=== PATIENT | female | born 1965 | race Two or more races ===

== ENCOUNTER → 2017-11-20 | Outpatient (CLI) | payer BC ==
[2017-11-20 11:48] LABS: Basophils # (auto) 0 uL; Basophils % (auto) 0.8 % (0.0-2.0); Eosinophils # (auto) 0 uL; Eosinophils % (auto) 0.7 % (0.0-7.0); Hematocrit 40.9 % (36.0-46.0); Hemoglobin 13.7 g/dL (12.2-16.2); Lymphocytes # (auto) 2.5 uL; Mean Corpuscular Hemoglobin 30.5 pg (28.0-32.0); Mean Corpuscular Hgb Conc. 33.5 g/dL (32.0-36.0); Mean Corpuscular Volume 90.9 fL (80.0-100.0); Monocytes # (auto) 0.5 uL; Monocytes % (auto) 9.6 % (0.0-12.0); Neutrophils # (auto) 2.5 uL; Neutrophils % (auto) 44.9 % (37.0-80.0); Platelet Count (auto) 299 10^3/uL (140-450); Red Cell Distribution Width 13.8 % (11.8-14.3); White Blood Cell 5.7 10^3/uL (4.4-10.8)
[2017-11-20 11:57] LABS: Urine Bacteria NONE SEEN /hpf (None Seen); Urine Blood Negative /uL (Negative); Urine Mucus FEW (None Seen); Urine Specific Gravity 1.012 (1.001-1.035); Urine WBC <1 /hpf (0 - 5)
[2017-11-20 13:27] LABS: Albumin 4.3 g/dL (3.4-5.0); BUN/Creatinine Ratio 13.8; Bilirubin, Total 0.2 mg/dL (0.2-1.0); Calcium 9.3 mg/dL (8.5-10.1); Potassium 4.2 mmol/L (3.5-5.1); Total Protein 7.6 g/dL (6.4-8.2)
== END | disposition home or self-care (01) ==
LOC: LAB 11:19
PROVIDERS: ATTEND Internal Medicine
DX: N95.1 Menopausal and female climacteric states (principal); M47.22 Other spondylosis with radiculopathy, cervical region; R79.89 Other specified abnormal findings of blood chemistry
CPT/HCPCS: 36415; 80053; 80061; 81001; 84439; 84443; 85025; 85652

== ENCOUNTER → 2017-12-04 | Outpatient (CLI) | payer BC | END | disposition home or self-care (01) | LOC: LAB 14:53 | PROVIDERS: ATTEND Internal Medicine | DX: N95.1 Menopausal and female climacteric states (principal); M47.22 Other spondylosis with radiculopathy, cervical region | CPT/HCPCS: 82270 ==

== ENCOUNTER → 2019-06-01 | Outpatient (CLI) | payer BC ==
[2019-06-01 09:41] LABS: Basophils # (auto) 0 uL; Basophils % (auto) 0.9 % (0.0-2.0); Eosinophils # (auto) 0.1 uL; Eosinophils % (auto) 1.9 % (0.0-7.0); Hematocrit 41.2 % (36.0-46.0); Hemoglobin 13.7 g/dL (12.2-16.2); Lymphocytes # (auto) 2.1 uL; Lymphocytes % (auto) 39.2 % (10.0-50.0); Mean Corpuscular Hemoglobin 30.8 pg (28.0-32.0); Mean Corpuscular Hgb Conc. 33.1 g/dL (32.0-36.0); Mean Corpuscular Volume 92.9 fL (80.0-100.0); Monocytes # (auto) 0.5 uL; Monocytes % (auto) 9.9 % (0.0-12.0); Neutrophils # (auto) 2.5 uL; Neutrophils % (auto) 48.1 % (37.0-80.0); Nucleated Red Blood Cells % 0.1 %; Platelet Count (auto) 270 10^3/uL (140-450); Red Blood Cells 4.44 10^6/uL (4.0-5.20); Red Cell Distribution Width 13.4 % (11.8-14.3); White Blood Cell 5.2 10^3/uL (4.4-10.8)
[2019-06-01 09:48] LABS: Urine Bacteria NONE SEEN /hpf (None Seen); Urine Blood Negative /uL (Negative); Urine Mucus FEW (None Seen); Urine Specific Gravity 1.011 (1.001-1.035); Urine WBC <1 /hpf (0 - 5)
[2019-06-01 10:41] LABS: Albumin 3.8 g/dL (3.4-5.0); Potassium 4.6 mmol/L (3.5-5.1)
[2019-06-01 10:51] LABS: BUN/Creatinine Ratio 17.7; Bilirubin, Total 0.3 mg/dL (0.2-1.0); Total Protein 7.2 g/dL (6.4-8.2)
== END | disposition home or self-care (01) ==
LOC: LAB 09:05
PROVIDERS: ATTEND Internal Medicine
DX: E78.00 Pure hypercholesterolemia, unspecified (principal); E66.9 Obesity, unspecified; R53.83 Other fatigue; R51 Headache; Z68.32 Body mass index [BMI] 32.0-32.9, adult
CPT/HCPCS: 36415; 80053; 80061; 81001; 82043; 84439; 84443; 85025; 85652

== ENCOUNTER → 2020-03-27 | Outpatient (CLI) | payer BC | END | disposition home or self-care (01) | LOC: LAB 10:20 | PROVIDERS: ATTEND Internal Medicine | DX: Z12.11 Encounter for screening for malignant neoplasm of colon (principal) | CPT/HCPCS: 82270 ==

== ENCOUNTER → 2020-11-23 | Outpatient (CLI) | payer BC ==
[2020-11-23 10:51] LABS: Basophils # (auto) 0.1 10 ^3/uL (0-0.2); Basophils % (auto) 0.9 % (0.0-2.0); Eosinophils # (auto) 0.1 10 ^3/uL (0-0.8); Eosinophils % (auto) 1.8 % (0.0-7.0); Hemoglobin 13.4 g/dL (12.2-16.2); Lymphocytes # (auto) 2.5 10 ^3/uL (0.4-5.4); Lymphocytes % (auto) 40.6 % (10.0-50.0); Mean Corpuscular Hemoglobin 31.2 pg (28.0-32.0); Mean Corpuscular Hgb Conc. 34.5 g/dL (32.0-36.0); Mean Corpuscular Volume 90.4 fL (80.0-100.0); Monocytes # (auto) 0.6 10 ^3/uL (0-1.3); Monocytes % (auto) 10.4 % (0.0-12.0); Neutrophils # (auto) 2.9 10 ^3/uL (1.6-8.6); Neutrophils % (auto) 46.3 % (37.0-80.0); Nucleated Red Blood Cells % 0.1 %; Platelet Count (auto) 305 10^3/uL (140-450); Red Blood Cells 4.31 10^6/uL (4.0-5.20); Red Cell Distribution Width 13.9 % (11.8-14.3); White Blood Cell 6.2 10^3/uL (4.4-10.8)
[2020-11-23 10:54] LABS: Urine Bacteria NONE SEEN /hpf (None Seen); Urine Blood Negative /uL (Negative); Urine Specific Gravity 1.021 (1.001-1.035); Urine WBC 1 /hpf (0 - 5)
[2020-11-23 11:22] LABS: Calcium 9.2 mg/dL (8.5-10.1); Potassium 4.1 mmol/L (3.5-5.1)
[2020-11-23 11:26] LABS: BUN/Creatinine Ratio 21.8; Bilirubin, Total 0.4 mg/dL (0.2-1.0); Total Protein 7.5 g/dL (6.4-8.2)
== END | disposition home or self-care (01) ==
LOC: LAB 10:27
PROVIDERS: ATTEND Internal Medicine
DX: Z00.00 Encounter for general adult medical examination without abnormal findings (principal); N95.1 Menopausal and female climacteric states; R51.9 Headache, unspecified
CPT/HCPCS: 36415; 80053; 80061; 81001; 84439; 84443; 85025; 85652

== ENCOUNTER 2020-12-25 11:31 | Emergency (ER) | payer BC ==
[~2020-12-25] VITALS: Ht 152.4 cm; Wt 72.6 kg
[2020-12-25] MEDS ORDERED: SODIUM CHLORIDE 0.9% 1,000 ML IVB ONE (12:15)
[2020-12-25] MEDS ORDERED: KETOROLAC TROMETH 30 MG/ML 1ML VIAL IV ONE (12:15)
[2020-12-25] MEDS ORDERED: ONDANSETRON HCL 4 MG/2 ML VIAL IV ONE (12:15)
[2020-12-25 12:51] LABS: Urine Bacteria NONE SEEN /hpf (None Seen); Urine Blood TRACE /uL (Negative); Urine Mucus FEW (None Seen); Urine Specific Gravity 1.022 (1.001-1.035); Urine WBC 1 /hpf (0 - 5)
[2020-12-25 13:30] LABS: Basophils # (auto) 0.1 10 ^3/uL (0-0.2); Basophils % (auto) 0.6 % (0.0-2.0); Eosinophils # (auto) 0 10 ^3/uL (0-0.8); Eosinophils % (auto) 0.1 % (0.0-7.0); Hematocrit 38.4 % (36.0-46.0); Hemoglobin 13.3 g/dL (12.2-16.2); Lymphocytes # (auto) 2.7 10 ^3/uL (0.4-5.4); Lymphocytes % (auto) 29.1 % (10.0-50.0); Mean Corpuscular Hemoglobin 31.2 pg (28.0-32.0); Mean Corpuscular Hgb Conc. 34.7 g/dL (32.0-36.0); Mean Corpuscular Volume 89.9 fL (80.0-100.0); Monocytes # (auto) 0.9 10 ^3/uL (0-1.3); Monocytes % (auto) 9.2 % (0.0-12.0); Neutrophils # (auto) 5.7 10 ^3/uL (1.6-8.6); Nucleated Red Blood Cells % 0.1 %; Platelet Count (auto) 331 10^3/uL (140-450); Red Blood Cells 4.27 10^6/uL (4.0-5.20); Red Cell Distribution Width 13.7 % (11.8-14.3); White Blood Cell 9.3 10^3/uL (4.4-10.8)
[2020-12-25 14:12] LABS: Albumin 4.3 g/dL (3.4-5.0); Calcium 9.4 mg/dL (8.5-10.1); Potassium 4.3 mmol/L (3.5-5.1)
[2020-12-25 14:16] LABS: BUN/Creatinine Ratio 15.7; Bilirubin, Total 0.4 mg/dL (0.2-1.0); Total Protein 7.5 g/dL (6.4-8.2)
[2020-12-25 15:00] VITALS: BP 148/88
== END 2020-12-25 16:09 | disposition home or self-care (01) ==
LOC: ER 11:31
DX: R10.9 Unspecified abdominal pain (principal); N20.9 Urinary calculus, unspecified; Z90.710 Acquired absence of both cervix and uterus
CPT/HCPCS: 36415; 74176; 80053; 81001; 83690; 85025; 85049; 96361; 96374; 96375; 99284; J1885; J2405; J7030

== ENCOUNTER 2020-12-26 18:03 | Inpatient (IN) | payer BC ==
[~2020-12-26] VITALS: Ht 30.5 cm; Wt 64.2 kg
[2020-12-26] MEDS ORDERED: SODIUM CHLORIDE 0.9% 1,000 ML IV SCH (18:30)
[2020-12-26] MEDS ORDERED: KETOROLAC TROMETH 30 MG/ML 1ML VIAL IV PRN (18:30)
[2020-12-26] MEDS ORDERED: NITROGLYCERIN 0.4 MG SL TAB SL PRN (18:30)
[2020-12-26] MEDS ORDERED: MORPHINE SULF INJ 2 MG/ML SYRINGE 1ML IV PRN ×2 (18:30)
[2020-12-26] MEDS ORDERED: ACETAMINOPHEN 500 MG TAB PO PRN (18:30)
[2020-12-26] MEDS ORDERED: ONDANSETRON HCL 4 MG/2 ML VIAL IV PRN (18:30)
[2020-12-26 18:38] VITALS: BP 143/92
[2020-12-26] MEDS ORDERED: MANNITOL FTV 25% 12.5 GM/50 ML 50 ML IV ONE (19:45)
[2020-12-26 22:00] VITALS: BP 145/78
[2020-12-27] MEDS ORDERED: IBUP600T27 PO (00:37)
[2020-12-27] MEDS ORDERED: ASPITAB34 OR (00:37)
[2020-12-27 05:00] VITALS: BP 121/79
[2020-12-27] MEDS ORDERED: SODIUM CHLORIDE 0.9% 1,000 ML IV SCH (07:00)
[2020-12-27 09:00] VITALS: BP 134/86
[2020-12-27] MEDS ORDERED: cefTRIAXone 1GM/50ML D5W 50 ML IV SCH (09:00)
[2020-12-27] MEDS ORDERED: PANTOPRAZOLE 40 MG TAB PO SCH (10:00)
[2020-12-27 13:00] VITALS: BP 145/87
[2020-12-27] MEDS ORDERED: MELO1TAB56 PO (16:24)
[2020-12-27] MEDS ORDERED: TAM04C PO (16:25)
[2020-12-27 17:00] VITALS: BP 144/80
[2020-12-27 17:20] VITALS: BP 134/86
[2020-12-27] MEDS ORDERED: TAMSULOSIN HYDROCHLORIDE 0.4 MG CAP PO SCH (18:00)
== END 2020-12-27 19:25 | disposition home or self-care (01) | DRG 694 ==
LOC: WEST WING 18:03
PROVIDERS: ADMIT Nurse Practitioner Acute Care; ATTEND Internal Medicine
DX: N13.2 Hydronephrosis with renal and ureteral calculous obstruction (principal); Z20.822 Contact with and (suspected) exposure to COVID-19; E66.01 Morbid (severe) obesity due to excess calories
CPT/HCPCS: G0378; J0696; J1885

== ENCOUNTER 2021-02-04 09:04 | Inpatient (IN) | payer BC ==
[~2021-02-04] VITALS: Ht 152.4 cm; Wt 74.3 kg
[~2021-02-04 09:04] MED LIST: ASPITAB34 OR; MELO1TAB56 PO; TAM04C PO
[2021-02-04] MEDS ORDERED: KETOROLAC TROMETH 30 MG/ML 1ML VIAL IV ONE (09:45)
[2021-02-04] MEDS ORDERED: SODIUM CHLORIDE 0.9% 1,000 ML IV ONE ×2 (09:45)
[2021-02-04 09:46] LABS: Basophils # (auto) 0 10 ^3/uL (0-0.2); Basophils % (auto) 0.4 % (0.0-2.0); Eosinophils # (auto) 0 10 ^3/uL (0-0.8); Hematocrit 41.3 % (36.0-46.0); Lymphocytes # (auto) 1.4 10 ^3/uL (0.4-5.4); Lymphocytes % (auto) 11.9 % (10.0-50.0); Mean Corpuscular Hemoglobin 30.4 pg (28.0-32.0); Mean Corpuscular Volume 89.5 fL (80.0-100.0); Monocytes # (auto) 0.8 10 ^3/uL (0-1.3); Monocytes % (auto) 7.2 % (0.0-12.0); Neutrophils # (auto) 9.2 10 ^3/uL (1.6-8.6); Neutrophils % (auto) 80.5 % (37.0-80.0); Red Blood Cells 4.61 10^6/uL (4.0-5.20); Red Cell Distribution Width 12.9 % (11.8-14.3); White Blood Cell 11.5 10^3/uL (4.4-10.8)
[2021-02-04 10:10] LABS: Albumin 3.7 g/dL (3.4-5.0); Calcium 9.1 mg/dL (8.5-10.1); Potassium 3.6 mmol/L (3.5-5.1)
[2021-02-04 10:13] LABS: BUN/Creatinine Ratio 14.1; Bilirubin, Total 0.5 mg/dL (0.2-1.0); Total Protein 7.6 g/dL (6.4-8.2)
[2021-02-04 10:14] LABS: Urine Bacteria NONE SEEN /hpf (None Seen); Urine Blood 3+ /uL (Negative); Urine Specific Gravity 1.014 (1.001-1.035); Urine WBC 3 /hpf (0 - 5)
[2021-02-04] MEDS ORDERED: TAMSULOSIN HYDROCHLORIDE 0.4 MG CAP PO ONE (13:00)
[2021-02-04] MEDS ORDERED: cefTRIAXone 1GM/50ML D5W 50 ML IV ONE (13:15)
[2021-02-04] MEDS ORDERED: HYDROcodone-ACET 5/325MG TAB PO PRN (13:45)
[2021-02-04] MEDS ORDERED: MORPHINE SULFATE INJECTION 2 MG/2 ML SYRG IV PRN ×2 (13:45)
[2021-02-04] MEDS ORDERED: ONDANSETRON HCL 4 MG/2 ML VIAL IV PRN (13:45)
[2021-02-04] MEDS ORDERED: NITROGLYCERIN 0.4 MG SL TAB SL PRN (13:45)
[2021-02-04] MEDS ORDERED: ACETAMINOPHEN 500 MG TAB PO PRN (13:45)
[2021-02-04] MEDS: SODIUM CHLORIDE 0.9% 1,000 ML IV SCH ×2 (13:52→21:45)
[2021-02-04 20:30] VITALS: BP 100/61
[2021-02-04] MEDS ORDERED: MANNITOL FTV 25% 12.5 GM/50 ML 50 ML IV ONE (20:45)
[2021-02-04 22:00] VITALS: BP 100/61
[2021-02-05] MEDS ORDERED: MULT-1058 PO (00:41)
[2021-02-05 05:00] VITALS: BP 115/68
[2021-02-05] MEDS: SODIUM CHLORIDE 0.9% 1,000 ML IV SCH ×3 (05:25→22:36)
[2021-02-05 06:38] LABS: Basophils # (auto) 0.1 10 ^3/uL (0-0.2); Basophils % (auto) 0.7 % (0.0-2.0); Eosinophils # (auto) 0.1 10 ^3/uL (0-0.8); Eosinophils % (auto) 0.9 % (0.0-7.0); Hematocrit 34.9 % (36.0-46.0); Hemoglobin 12.2 g/dL (12.2-16.2); Lymphocytes # (auto) 2.4 10 ^3/uL (0.4-5.4); Lymphocytes % (auto) 31.7 % (10.0-50.0); Mean Corpuscular Hemoglobin 31.3 pg (28.0-32.0); Mean Corpuscular Volume 89.4 fL (80.0-100.0); Monocytes # (auto) 0.9 10 ^3/uL (0-1.3); Monocytes % (auto) 11.7 % (0.0-12.0); Neutrophils # (auto) 4.2 10 ^3/uL (1.6-8.6); White Blood Cell 7.6 10^3/uL (4.4-10.8)
[2021-02-05 06:53] LABS: INR 1.02 (0.9-1.15); Partial Thromboplastin Time 26.4 sec (23.6-33.0)
[2021-02-05 06:59] LABS: Calcium 8.2 mg/dL (8.5-10.1); Potassium 4.5 mmol/L (3.5-5.1)
[2021-02-05 07:03] LABS: BUN/Creatinine Ratio 13.7
[2021-02-05 08:49] VITALS: BP 127/76
[2021-02-05] MEDS ORDERED: LIDOCAINE 2%HCL (LOCAL ANESTH.) INJ 20ML MDV ONE (10:19)
[2021-02-05] MEDS ORDERED: MIDAZOLAM HCL 2MG/2ML 2ml VIAL (1mg/ml) ONE (10:23)
[2021-02-05] MEDS ORDERED: ONDANSETRON HCL 4 MG/2 ML VIAL ONE (10:23)
[2021-02-05] MEDS ORDERED: fentaNYL CITRATE 100 MCG/2 ML VL ONE (10:23)
[2021-02-05] MEDS ORDERED: diphenhdrAMINE HCL 50 MG/1 ML VL ONE (10:23)
[2021-02-05] MEDS ORDERED: IODIXANOL 320MG/ML 100ML BTL IV ONE (10:51)
[2021-02-05] MEDS: cefTRIAXone 1GM/50ML D5W 50 ML IV SCH (15:12)
[2021-02-05] MEDS: KETOROLAC TROMETH 30 MG/ML 1ML VIAL IV PRN ×2 (15:13→22:37)
[2021-02-05 17:00] VITALS: BP 130/75
[2021-02-05 22:00] VITALS: BP 133/71
[2021-02-06 05:00] VITALS: BP 136/92
[2021-02-06] MEDS: SODIUM CHLORIDE 0.9% 1,000 ML IV SCH ×2 (05:45→13:12)
[2021-02-06 06:20] LABS: Basophils # (auto) 0.1 10 ^3/uL (0-0.2); Basophils % (auto) 0.8 % (0.0-2.0); Eosinophils # (auto) 0.1 10 ^3/uL (0-0.8); Eosinophils % (auto) 1.1 % (0.0-7.0); Hematocrit 33.6 % (36.0-46.0); Hemoglobin 11.9 g/dL (12.2-16.2); Lymphocytes # (auto) 2.5 10 ^3/uL (0.4-5.4); Lymphocytes % (auto) 31.1 % (10.0-50.0); Mean Corpuscular Hemoglobin 31.9 pg (28.0-32.0); Mean Corpuscular Hgb Conc. 35.3 g/dL (32.0-36.0); Mean Corpuscular Volume 90.4 fL (80.0-100.0); Monocytes % (auto) 12.4 % (0.0-12.0); Neutrophils # (auto) 4.3 10 ^3/uL (1.6-8.6); Neutrophils % (auto) 54.6 % (37.0-80.0); Nucleated Red Blood Cells % 0.1 %; Red Blood Cells 3.72 10^6/uL (4.0-5.20); Red Cell Distribution Width 13.1 % (11.8-14.3); White Blood Cell 7.9 10^3/uL (4.4-10.8)
[2021-02-06 06:35] LABS: BUN/Creatinine Ratio 16.1; Calcium 8.4 mg/dL (8.5-10.1); Potassium 3.8 mmol/L (3.5-5.1)
[2021-02-06 09:00] VITALS: BP 135/62
[2021-02-06] MEDS: cefTRIAXone 1GM/50ML D5W 50 ML IV SCH (09:30)
[2021-02-06 12:13] VITALS: BP 130/71
[2021-02-06 12:57] VITALS: BP 130/71
== END 2021-02-06 13:05 | disposition home or self-care (01) | DRG 694 ==
LOC: ER 09:04 → EDBD 09:04 → OVERFLOW 13:41 → WEST WING 20:03
PROVIDERS: ADMIT Nurse Practitioner Acute Care; ATTEND Internal Medicine
PROC: 0T9030Z Drainage of Right Kidney with Drainage Device, Percutaneous Approach (ICD-10-PCS; principal; 2021-02-05)
PROC: BT41ZZZ Ultrasonography of Right Kidney (ICD-10-PCS; 2021-02-05)
PROC: BT111ZZ Fluoroscopy of Right Kidney using Low Osmolar Contrast (ICD-10-PCS; 2021-02-05)
DX: N13.2 Hydronephrosis with renal and ureteral calculous obstruction (principal); Z20.822 Contact with and (suspected) exposure to COVID-19; Z80.1 Family history of malignant neoplasm of trachea, bronchus and lung; Z80.7 Family history of other malignant neoplasms of lymphoid, hematopoietic and related tissues; Z90.710 Acquired absence of both cervix and uterus
CPT/HCPCS: 36415; 71045; 74176; 74425; 76942; 80048; 80053; 81001; 85025; 85610; 85730; 86850; 86900; 86901; 87086; 87426; 93005; 96361; 96365; 96375; 99152; C1729; G0378; J0696; J1885; J2250; J2405; Q9967

== ENCOUNTER → 2021-11-25 | Day surgery (SDC) | payer BC ==
[2021-11-21 11:20] LABS: Basophils # (auto) 0.1 10 ^3/uL (0-0.2); Eosinophils # (auto) 0.1 10 ^3/uL (0-0.8); Eosinophils % (auto) 1.1 % (0.0-7.0); Hematocrit 36.6 % (36.0-46.0); Hemoglobin 12.7 g/dL (12.2-16.2); Lymphocytes # (auto) 2.2 10 ^3/uL (0.4-5.4); Lymphocytes % (auto) 32.8 % (10.0-50.0); Mean Corpuscular Hemoglobin 31.8 pg (28.0-32.0); Mean Corpuscular Hgb Conc. 34.7 g/dL (32.0-36.0); Mean Corpuscular Volume 91.9 fL (80.0-100.0); Monocytes # (auto) 0.8 10 ^3/uL (0-1.3); Monocytes % (auto) 11.8 % (0.0-12.0); Neutrophils # (auto) 3.5 10 ^3/uL (1.6-8.6); Neutrophils % (auto) 53.3 % (37.0-80.0); Red Blood Cells 3.98 10^6/uL (4.0-5.20); Red Cell Distribution Width 14.3 % (11.8-14.3); White Blood Cell 6.6 10^3/uL (4.4-10.8)
[2021-11-21 11:39] LABS: INR 0.99 (0.9-1.15); Partial Thromboplastin Time 25.7 sec (23.6-33.0)
[2021-11-21 11:47] LABS: Urine Bacteria NONE SEEN /hpf (None Seen); Urine Blood Negative /uL (Negative); Urine Specific Gravity 1.019 (1.001-1.035); Urine WBC 1 /hpf (0 - 5)
[2021-11-21 12:04] LABS: Albumin 3.8 g/dL (3.4-5.0); Calcium 9.4 mg/dL (8.5-10.1); Potassium 4.4 mmol/L (3.5-5.1)
[2021-11-21 12:10] LABS: BUN/Creatinine Ratio 22.5; Bilirubin, Total 0.2 mg/dL (0.2-1.0); Total Protein 7.1 g/dL (6.4-8.2)
[~2021-11-25] VITALS: Ht 152.4 cm; Wt 74.8 kg
[~2021-11-25] MED LIST changes: +BUPIVACAINE 0.25% INJ 50ML VIAL ONE; +GLYCOPYRROLATE 0.2 MG/ML 1ML VIAL ONE; +HYDROmorphone HCL 2 MG/ML VL/or syr IV PRN; +KETAMINE 50mg/ML 10ml Vial (500mg/10ml) IV ONE; +KETOROLAC TROMETH 60MG/2ML VIAL ONE; +LIDOCAINE 1%HCL (LOCAL ANESTH) 10 ML MDV ONE; -MELO1TAB56 PO; +MIDAZOLAM HCL 2MG/2ML 2ml VIAL (1mg/ml) ONE; +MULT-1058 PO; +ONDANSETRON HCL 4 MG/2 ML VIAL IV ONE; +ONDANSETRON HCL 4 MG/2 ML VIAL IV PRN; +ONDANSETRON HCL 4 MG/2 ML VIAL ONE; +PROPOFOL 10 MG/ML 20 ML IV ONE; -TAM04C PO; +ceFAZolin 1GM/50ML 100 ML IV ONE
[2021-11-25 11:40] VITALS: BP 148/85
== END | disposition home or self-care (01) ==
LOC: SUR 08:45
PROVIDERS: ATTEND Orthopaedic Surgery Adult Reconstructive Orthopaedic Surgery
DX: M65.312 Trigger thumb, left thumb (principal); G43.909 Migraine, unspecified, not intractable, without status migrainosus; E66.01 Morbid (severe) obesity due to excess calories; Z98.890 Other specified postprocedural states; Z79.899 Other long term (current) drug therapy; Z88.6 Allergy status to analgesic agent; Z80.42 Family history of malignant neoplasm of prostate; Z80.1 Family history of malignant neoplasm of trachea, bronchus and lung; Z80.8 Family history of malignant neoplasm of other organs or systems; Z68.32 Body mass index [BMI] 32.0-32.9, adult
CPT/HCPCS: 26055; 36415; 80053; 81001; 85025; 85610; 85730; J0690; J1885; J2001; J2250; J2405; J2704; J3490; U0003

== ENCOUNTER → 2022-01-01 | Outpatient (CLI) | payer BC ==
[~2022-01-01] MED LIST changes: -BUPIVACAINE 0.25% INJ 50ML VIAL ONE; -GLYCOPYRROLATE 0.2 MG/ML 1ML VIAL ONE; -HYDROmorphone HCL 2 MG/ML VL/or syr IV PRN; -KETAMINE 50mg/ML 10ml Vial (500mg/10ml) IV ONE; -KETOROLAC TROMETH 60MG/2ML VIAL ONE; -LIDOCAINE 1%HCL (LOCAL ANESTH) 10 ML MDV ONE; -MIDAZOLAM HCL 2MG/2ML 2ml VIAL (1mg/ml) ONE; -ONDANSETRON HCL 4 MG/2 ML VIAL IV ONE; -ONDANSETRON HCL 4 MG/2 ML VIAL IV PRN; -ONDANSETRON HCL 4 MG/2 ML VIAL ONE; -PROPOFOL 10 MG/ML 20 ML IV ONE; -ceFAZolin 1GM/50ML 100 ML IV ONE
[2022-01-01 12:31] LABS: Basophils # (auto) 0.1 10 ^3/uL (0-0.2); Basophils % (auto) 0.9 % (0.0-2.0); Eosinophils # (auto) 0.1 10 ^3/uL (0-0.8); Eosinophils % (auto) 1.2 % (0.0-7.0); Hematocrit 38.1 % (36.0-46.0); Hemoglobin 12.8 g/dL (12.2-16.2); Lymphocytes # (auto) 2.4 10 ^3/uL (0.4-5.4); Lymphocytes % (auto) 34.8 % (10.0-50.0); Mean Corpuscular Hemoglobin 30.7 pg (28.0-32.0); Mean Corpuscular Hgb Conc. 33.6 g/dL (32.0-36.0); Mean Corpuscular Volume 91.3 fL (80.0-100.0); Monocytes # (auto) 0.7 10 ^3/uL (0-1.3); Monocytes % (auto) 10.4 % (0.0-12.0); Neutrophils # (auto) 3.6 10 ^3/uL (1.6-8.6); Neutrophils % (auto) 52.7 % (37.0-80.0); Nucleated Red Blood Cells % 0.1 %; Red Blood Cells 4.17 10^6/uL (4.0-5.20); Red Cell Distribution Width 13.3 % (11.8-14.3); White Blood Cell 6.9 10^3/uL (4.4-10.8)
[2022-01-01 12:43] LABS: Urine Bacteria FEW /hpf (None Seen); Urine Blood Negative /uL (Negative); Urine Mucus FEW (None Seen); Urine WBC 1 /hpf (0 - 5)
[2022-01-01 12:52] LABS: Calcium 9.3 mg/dL (8.5-10.1); Potassium 3.9 mmol/L (3.5-5.1)
[2022-01-01 12:57] LABS: BUN/Creatinine Ratio 15.6; Bilirubin, Total 0.4 mg/dL (0.2-1.0); Total Protein 7.3 g/dL (6.4-8.2)
== END | disposition home or self-care (01) ==
LOC: LAB 11:42
PROVIDERS: ATTEND Internal Medicine
DX: Z00.00 Encounter for general adult medical examination without abnormal findings (principal); M25.312 Other instability, left shoulder
CPT/HCPCS: 36415; 80053; 80061; 81001; 84439; 84443; 85025; 85652

== ENCOUNTER → 2023-11-24 | Outpatient (CLI) | payer BC ==
[2023-11-24 10:36] LABS: Urine Bacteria None Seen /hpf (None Seen); Urine WBC None Seen /hpf (0 - 5)
[2023-11-24 10:43] LABS: Basophils # (auto) 0.1 10 ^3/uL (0-0.2); Eosinophils # (auto) 0.1 10 ^3/uL (0-0.8); Eosinophils % (auto) 1.7 % (0.0-7.0); Hematocrit 39.4 % (36.0-46.0); Hemoglobin 13.3 g/dL (12.2-16.2); Lymphocytes # (auto) 2.3 10 ^3/uL (0.4-5.4); Lymphocytes % (auto) 34.2 % (10.0-50.0); Mean Corpuscular Hemoglobin 31.1 pg (28.0-32.0); Mean Corpuscular Hgb Conc. 33.8 g/dL (32.0-36.0); Mean Corpuscular Volume 91.8 fL (80.0-100.0); Monocytes # (auto) 0.7 10 ^3/uL (0-1.3); Monocytes % (auto) 10.7 % (0.0-12.0); Neutrophils # (auto) 3.5 10 ^3/uL (1.6-8.6); Neutrophils % (auto) 52.4 % (37.0-80.0); Red Blood Cells 4.29 10^6/uL (4.0-5.20); Red Cell Distribution Width 13.1 % (11.8-14.3); White Blood Cell 6.6 10^3/uL (4.4-10.8)
[2023-11-24 10:47] LABS: Urine Blood Negative /uL (Negative); Urine Clarity Clear (Clear); Urine Color Colorless (Yellow); Urine Protein, UAD Negative (Negative); Urine Specific Gravity 1.006 (1.001-1.035); Urine Urobilinogen Normal (Negative)
[2023-11-24 11:20] LABS: Alanine Aminotransferase 20 U/L (7-40); Alkaline Phosphatase 80 U/L (46-116); Anion Gap 6 (5-15); BUN/Creatinine Ratio 15.2 (10.0-20.0); Blood Urea Nitrogen 12 mg/dL (9-23); Calcium 10.2 mg/dL (8.5-10.1); Carbon Dioxide 28 mmol/L (20-30); Chloride 106 mmol/L (98-107); Glucose 94 mg/dL (74-106); LDL Cholesterol 116 mg/dL (< 100); Potassium 4.3 mmol/L (3.5-5.1); Sodium 140 mmol/L (136-145); Triglycerides 149 mg/dL (< 150)
[2023-11-24 11:21] LABS: Albumin 4.6 g/dL (3.2-4.8); Aspartate Aminotransferase 14 U/L (13-40); Bilirubin, Total 0.4 mg/dL (0.2-1.0); Cholesterol 190 mg/dL (< 200); HDL Cholesterol 65 mg/dL (40-59)
[2023-11-24 11:48] LABS: Erythrocyte Sedimentation Rate 3 mm/hr (0-20)
== END | disposition home or self-care (01) ==
LOC: LAB 10:23
PROVIDERS: ATTEND Internal Medicine
DX: R53.83 Other fatigue (principal)
CPT/HCPCS: 36415; 80053; 80061; 81001; 84439; 84443; 85025; 85652

== ENCOUNTER → 2024-08-15 | Outpatient (CLI) | payer BC ==
--- NOTE | 2024-08-16 15:55 | DVHSR ---
APPROVED REPORT EXAM: Two-dimensional and M-mode echocardiogram with Doppler and color Doppler. DIMENSIONS LVDd4.5 (3.8-5.7cm)LA (2D)2.9 (1.9-4.0cm)Aortic Root3.8 (2.0-3.7cm) LVDs3.0 (2.5-4.0cm)LA (MM) (1.9-4.0cm)Aortic Cusp Exc2.0 (1.5-2.0cm) EF (%) 62.5 (55-70%)Rt. Atrium3.4 (1.9-4.0cm)Asc. Aorta cm IVSd1.2 (0.7-1.1cm)RV (D)3.2 (1.8-2.4cm) PWd1.1 (0.7-1.1cm) Mitral Valve MitralMitral Stenosis E wave0.50m/sMV Mean GR.mmHg A wave0.82m/sMV Peak GR.mmHg E/A ratio0.62D MVAcm2 DECEL [id number] 1/2 [place] Aortic Valve Aortic ValveAortic Stenosis V10.86m/Teresita Mean GR.4mmHg V21.27m/Teresita Peak GR.6mmHg Pulmonic Valve V20.90m/s Tricuspid Valve [id number] LEFT VENTRICLE The Ejection Fraction is >55%. ATRIA The left atrial size is normal. The right atrium size is normal. MITRAL VALVE The mitral valve is normal in structure and function. There is no mitral valve regurgitation noted. PULMONIC VALVE The pulmonic valve is not well visualized. TRICUSPID VALVE The tricuspid valve is grossly normal. AORTIC VALVE No aortic regurgitation is present. GREAT VESSELS There is mild aortic root dilatation. PERICARDIAL EFFUSION There is no pericardial effusion. Conclusion EF >55% MILD AORTIC ROOT DILATATION
== END | disposition home or self-care (01) ==
LOC: Rad HDHVI 12:58
PROVIDERS: ATTEND Internal Medicine Cardiovascular Disease
DX: I77.819 Aortic ectasia, unspecified site (principal); R94.31 Abnormal electrocardiogram [ECG] [EKG]
CPT/HCPCS: 93306

== ENCOUNTER → 2024-08-17 | Outpatient (CLI) | payer BC ==
[~2024-08-17] VITALS: Ht 152.4 cm; Wt 77.1 kg
--- NOTE | 2024-08-26 14:22 | DVHSR ---
APPROVED REPORT Exam: Nuclear Stress Test Indication: Pre-Operative CV evaluation, Abnormal EKG Ht: 5 ft 0 in Wt: 170 lbs BSA: 1.74 m2 HR: 85 bpm BP: 128/78 mmHg BMI: 33.19 Rhythm: NSR Medical History Medical History: IA, Abnormal EKG Medications: Ibuprofen, Excedrin Allergies: Codeine Stress Test Details Stress Test: Exercise stress testing was performed using a Moose protocol. HR Resting HR: 85 bpmMax Heart Rate (APMHR): 159.151396 bpm Max HR Achieved: 146 bpmTarget HR (85% APMHR): 135.986191 bpm % of APMHR: 91.82 Recovery HR: 99 bpm HR response to stress: Accelerated HR response to stress BP Resting BP: 128/78 mmHg Max BP: 189/83 mmHg Recovery BP: 130/77 mmHg BP response to stress: Normal resting BP- exaggerated response ECG Resting ECG: Sinus Rhythm Stress ECG: Sinus Tachycardia Arrhythmia: None Recovery ECG: Sinus Rhythm Clinical Reason for Termination: Target HR achieved Stress Symptoms: None Exercise duration: 3 min 50 sec Exercise capacity: 4.6 METs Stress ECG Conclusion ECG RESPONSE NON ISCHEMIC CARDIOLITE IMAGES NO PERFUSION ABNL LESS THAN 10% LIKELIHOOD FOR STRESS INDUCED ISCHEMIA EF >55% NM EXAM: Myocardial Perfusion REST/STRESS Imaging Protocol: Rest Tc-99m/Stress Tc-99m 1 day Resting Data Rest SPECT myocardial perfusion imaging was performed in supine position 30 minutes following the int ravenous injection of 10.89 mCi of Tc-99m Sestamibi. Time of rest injection: 1005 Time of rest imagin Administration Route: IV Administration Site: Left AC Exercise Stress At peak stress, the patient was injected intravenously with 30.5 mCi of Tc-99m Sestamibi. Time of stress injection: 1112 Time of stress imagin Administration Route: IV Administration Site: Left AC Heart Rate at time of stress injection: 137 bpm. Patient continued to exercise for 1 minute(s). Gated Stress SPECT was performed 15 minutes after stress injection. The images were gated to evaluate regional wall motion and calculate left ventricular ejection fracti on. Comments Cardiolite injection at 2 minutes, 40 seconds into test. Study Data Post stress, the left ventricular ejection was >55%.. Nuclear Conclusion ECG RESPONSE NON ISCHEMIC CARDIOLITE IMAGES NO PERFUSION ABNL LESS THAN 10% LIKELIHOOD FOR STRESS INDUCED ISCHEMIA EF >55%
== END | disposition home or self-care (01) ==
LOC: Rad HDHVI 09:56
PROVIDERS: ATTEND Internal Medicine Cardiovascular Disease
DX: Z01.810 Encounter for preprocedural cardiovascular examination (principal); I25.2 Old myocardial infarction; R00.0 Tachycardia, unspecified; R94.31 Abnormal electrocardiogram [ECG] [EKG]; Z88.5 Allergy status to narcotic agent
CPT/HCPCS: 78452; 93017; A9500; 96374